=== PATIENT | female | born 2000 | race African-American/Black ===

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

== ENCOUNTER 2019-01-06 20:28 | Emergency (ER) | payer OTHER ==
[~2019-01-06] VITALS: Ht 170.2 cm; Wt 122.9 kg
[2019-01-06 20:48] VITALS: Ht 170.2 cm; Wt 122.9 kg
[2019-01-06] MEDS ORDERED: ZPAK PO (23:26)
[2019-01-06] MEDS ORDERED: FLUTICASONE PRO16 GM NASAL (23:26)
[2019-01-06] MEDS ORDERED: CLARITIN 10 MG10 MG PO (23:26)
[2019-01-06 23:48] VITALS: BP 123/75
== END 2019-01-06 23:45 | disposition home or self-care (01) ==
LOC: D.ER 20:28
DX: J01.90 Acute sinusitis, unspecified (principal)

== ENCOUNTER 2020-01-23 16:59 | Emergency (ER) | payer OTHER ==
[~2020-01-23] VITALS: Ht 170.2 cm; Wt 124.7 kg
[~2020-01-23 16:59] MED LIST: CLARITIN 10 MG10 MG PO; FLUTICASONE PRO16 GM NASAL; ZPAK PO
[2020-01-23 17:16] VITALS: Ht 170.2 cm; Wt 124.7 kg
[2020-01-23 17:55] LABS: BASOPHILS 0.4 % (0-2); EOSINOPHILS 2.6 % (0-7); HEMATOCRIT 32.8 % (36.0-48.0); HEMOGLOBIN 10.4 g/dL (12-16); IMMATURE GRANULOCYTES 0.2 % (0-5); LYMPHOCYTES 22.3 % (15-50); MCH 22.4 pg (26.0-34.0); MCHC 31.7 g/dL (31.0-37.0); MCV 70.7 fL (80.0-100.0); MEAN PLATELET VOLUME 8.1 fL (7.4-10.4); MONOCYTES 6.7 % (2-11); NEUTROPHILS 67.8 % (40-80); PLATELET COUNT 326 10x3/uL (130-400); RBC 4.64 10x6/uL (4.00-5.40); RDW 17.4 % (11.5-14.5); WBC 9.2 10x3/uL (4.8-10.8)
[2020-01-23 18:05] LABS: CALC OSMOLALITY 277 mosm/kg (275-300); CARBON DIOXIDE 28.8 mmol/L (21.0-32.0); CHLORIDE - SERUM 103 mmol/L (98-107); CREATININE - SERUM 0.8 mg/dL (0.6-1.3); GLUCOSE 120 mg/dL (74-106); POTASSIUM - SERUM 3.5 mmol/L (3.5-5.1); SODIUM 139 mmol/L (136-145); UREA NITROGEN 9 mg/dL (7-18); eGFR NON AFRICAN AMERICAN > 90 mL/min (90-120)
[2020-01-23 18:10] LABS: ALBUMIN 3.1 g/dL (3.4-5.0); ALKALINE PHOSPHATASE 85 U/L (30-120); ALT (SGPT) 19 U/L (10-68); PROTEIN - SERUM 8.1 g/dL (6.4-8.2)
[2020-01-23 18:52] VITALS: BP 136/87
== END 2020-01-23 18:52 | disposition home or self-care (01) ==
LOC: D.ER 16:59
PROVIDERS: Family Medicine
DX: T58.91XA Toxic effect of carbon monoxide from unspecified source, accidental (unintentional), initial encounter (principal); R53.1 Weakness; R20.0 Anesthesia of skin; R20.2 Paresthesia of skin